=== PATIENT | male | born 1960 | race Two or more races ===

== ENCOUNTER 2018-04-13 | Outpatient (CLI) | END 2018-04-13 16:04 | disposition short-term general hospital (02) | CPT/HCPCS: A0170; A0425; A0426 ==

== ENCOUNTER 2018-04-13 09:53 | Emergency (ER) | payer MEDICAID ==
[2018-04-13] MEDS ORDERED: ONDANSETRON 4 MG/2 ML VIAL IVP STA ×2 (10:07→13:15)
[2018-04-13] MEDS ORDERED: TETANUS/DIPHTHERIA/PERTUSSIS 0.5 ML SYRINGE IM ONE (10:07)
[2018-04-13] MEDS ORDERED: ceFAZolin 2 GM/50 ML 2 GM/50 ML BAG IV ONE (10:07)
[2018-04-13] MEDS ORDERED: MORPHINE 2 MG/ML SYRINGE IVP STA ×3 (10:07→13:19)
[2018-04-13] MEDS ORDERED: SODIUM CHLORIDE 0.9% 1,000 ML IV ONE ×2 (10:08→11:26)
--- NOTE | 2018-04-13 10:12 | ED Physician Documentation ---
History of Present Illness - Stated complaint Stated Complaint: R ARM LAC - Additonal information Additional information: hx from pt 57 male no sig pmhx no known allergies right handed was at work cut his R dorsal FA with a chainsaw large deep lac he believed bone damaged unable to extend wrist nl sensation last ate yesterday, had tea 2 hr ago Review of Systems Skin: reports: Laceration (s) Musculoskeletal: reports: Extremity pain Neurologic: reports: Focal weakness. denies: Numbness PD PAST MEDICAL HISTORY - Past Medical History Cardiovascular: OK - Past Surgical History Past Surgical History: No - Present Medications Home Medications: Ambulatory Orders Medication Instructions Recorded Confirmed No Known Home Medications [No 08/10/16 08/10/16 Known Home Medications] - Allergies Allergies/Adverse Reactions: Allergies Allergy/AdvReac Type Severity Reaction Status Date / Time No Known Drug Allergies Allergy Verified 08/10/16 14:45 - Social History Does the pt smoke?: No Smoking Status: Never smoker Does the pt drink ETOH?: No Does the pt have substance abuse?: No - Immunizations Immunizations are current?: Yes - POLST Patient has POLST: No PD ED PE NORMAL - Vitals Vital signs reviewed: Yes - Cardiac Cardiac: RRR - Respiratory Respiratory: No respiratory distress, Clear bilaterally - Extremities Extremities: Other (RE - approx 6 cm deep gaping lac to dorsal R FA appro 3 cm proximal to wrsit, oozing blood but not pulsatile, _ radial and ulnar pulses and cap refill < 2 sec, + senation to all fingers and median/ulnar/radial nerve distribution, weakness with extending fingers exp 3-5, unable to extend wrist at all) Results - Vitals Vitals: Vital Signs - 24 hr 04/13/18 04/13/18 04/13/18 10:07 11:15 11:32 Temperature 36.0 C L Heart Rate 74 39 L 55 L Respiratory 18 14 15 Rate Blood Pressure 130/95 H 91/76 116/71 O2 Saturation 98 95 96 04/13/18 04/13/18 04/13/18 12:28 14:30 15:52 Temperature 36.1 C L Heart Rate 55 L 57 L 63 Respiratory 16 11 L 11 L Rate Blood Pressure 110/75 101/74 122/78 O2 Saturation 100 97 99 Oxygen O2 Source Room air - Labs Labs: Laboratory Tests 04/13/18 04/13/18 04/13/18 10:10 10:10 10:10 WBC 5.1 RBC 5.27 Hgb 16.4 Hct 48.6 MCV 92.2 MCH 31.1 H MCHC 33.8 RDW 14.2 Plt Count 223 MPV 7.8 Neut # (Auto) 2.4 Lymph # (Auto) 2.1 Toole # (Auto) 0.3 Eos # (Auto) 0.2 Baso # (Auto) 0.0 Absolute Nucleated RBC 0.00 Nucleated RBC % 0.0 Sodium 136 Potassium 3.4 L Chloride 104 Carbon Dioxide 25 Anion Gap 7.0 BUN 19 Creatinine 0.8 Estimated GFR (MDRD) 99 Glucose 118 H Calcium 8.9 Blood Type O POSITIVE Antibody Screen NEGATIVE 04/13/18 11:45 WBC RBC Hgb 12.4 L Hct MCV MCH MCHC RDW Plt Count MPV Neut # (Auto) Lymph # (Auto) Toole # (Auto) Eos # (Auto) Baso # (Auto) Absolute Nucleated RBC Nucleated RBC % Sodium Potassium Chloride Carbon Dioxide Anion Gap BUN Creatinine Estimated GFR (MDRD) Glucose Calcium Blood Type Antibody Screen - Rads (name of study) FA Radiology: See rad report (+ bony avulsion distal radius) PD MEDICAL DECISION MAKING - ED course ED course: 1045 spoke to [facility] ortho Dr Argueta who rec transfer to a higher level of care with hand surgery 1055 spoke to hand surgery at [facility] Dr Berrios and he rec I discuss with [facility] 1100 called [facility] and spoke to Dr Cabrera who suggested I contact [facility] again spoke to both Dr Cabrera and Dr Berrios several more times pt accepted at [facility] and plan is surgery today during irrigation and dressing of wound pt had a near syncope episode HR 30s (sinus thomas on tele) SBP 90 laid down given IVF will recheck hgb (dropped but still > 8) sounds vagal numerous NV checks, still with < 2 sec cap refill, slight dec sensation to index and 5th finger but still intact given a second dose of ancef prior to transfer COBRAs complete, pt transferred by EMS - Sepsis Event Vital Signs: Vital Signs - 24 hr 04/13/18 04/13/18 04/13/18 10:07 11:15 11:32 Temperature 36.0 C L Heart Rate 74 39 L 55 L Respiratory 18 14 15 Rate Blood Pressure 130/95 H 91/76 116/71 O2 Saturation 98 95 96 0604/13/18 04/13/18 12:28 14:30 15:52 Temperature 36.1 C L Heart Rate 55 L 57 L 63 Respiratory 16 11 L 11 L Rate Blood Pressure 110/75 101/74 122/78 O2 Saturation 100 97 99 Oxygen O2 Source Room air Departure - Departure Disposition: 02 Transfer Acute Care Hosp Clinical Impression: Open fracture, Tendon laceration, Contact with chainsaw as cause of accidental injury Condition: Good
[2018-04-13 10:27] LABS: BASOPHILS % (AUTO) 0.8 %; EOSINOPHILS # (AUTO) 0.2 10^3/uL (0.0-0.7); EOSINOPHILS % (AUTO) 3.5 %; HGB - HEMOGLOBIN 16.4 g/dL (14.0-18.0); LYMPHOCYTES # (AUTO) 2.1 10^3/uL (1.5-3.5); LYMPHOCYTES % (AUTO) 40.7 %; MEAN CORPUSCULAR HEMOGLOBIN 31.1 pg (27.0-31.0); MEAN CORPUSCULAR HGB CONC 33.8 g/dL (32.0-36.0); MEAN CORPUSCULAR VOLUME 92.2 fL (80.0-94.0); MEAN PLATELET VOLUME 7.8 fL (7.4-11.4); MONOCYTES # (AUTO) 0.3 10^3/uL (0.0-1.0); MONOCYTES % (AUTO) 6.9 %; NEUTROPHILS # (AUTO) 2.4 10^3/uL (1.5-6.6); NEUTROPHILS % (AUTO) 48.1 %; PLT - PLATELET COUNT 223 10^3/uL (130-450); RED BLOOD COUNT 5.27 10^6/uL (4.70-6.10); RED CELL DISTRIBUTION WIDTH 14.2 % (12.0-15.0); WHITE BLOOD COUNT 5.1 x10^3/uL (4.8-10.8)
[2018-04-13 10:33] LABS: CALCIUM 8.9 mg/dL (8.5-10.3); CREATININE 0.8 mg/dL (0.6-1.2)
--- NOTE | 2018-04-13 10:57 | XRAY Report ---
Procedure Date: 04/13/2018 Accession Number: [id number] / [id number] Procedure: XR - Forearm RT CPT Code: FULL RESULT: EXAM: RIGHT FOREARM RADIOGRAPHY EXAM DATE: 04/13/2018 10:38 AM. CLINICAL HISTORY: Chainsaw vs arm injury. COMPARISON: None. TECHNIQUE: 2 views. FINDINGS: Bones: There is a bony fragment abutting the radial side of the distal radius, 6 x 11 mm with adjacent soft tissue swelling and soft tissue air. No other fractures or bone lesions identify. Joints: No effusions or subluxations in the visualized wrist or elbow joints. Soft Tissues: No radiopaque foreign body. IMPRESSION: A bony fragment abutting the radial side of the distal radius, 6 x 11 mm with adjacent soft tissue swelling and soft tissue air, suggesting direct chainsaw injury. RADIA
[2018-04-13] MEDS ORDERED: ceFAZolin 1 GM in SODIUM CHLORIDE 0.9% MINIBAG 100 ML IV ONE (14:36)
[2018-04-13 15:53] VITALS: BP 122/78
== END 2018-04-13 16:03 | disposition short-term general hospital (02) ==
LOC: ED 09:53
DX: S52.91XB Unspecified fracture of right forearm, initial encounter for open fracture type I or II (principal); S56.921A Laceration of unspecified muscles, fascia and tendons at forearm level, right arm, initial encounter; S51.811A Laceration without foreign body of right forearm, initial encounter; W29.3XXA Contact with powered garden and outdoor hand tools and machinery, initial encounter; Y99.0 Civilian activity done for income or pay; I25.2 Old myocardial infarction; Z23 Encounter for immunization
CPT/HCPCS: 36415; 73090; 80048; 85018; 85025; 86850; 86900; 86901; 90471; 90715; 96361; 96365; 96366; 96375; 96376; 99284; 99285; J0690; J2270